=== PATIENT | male | born 1955 | race Caucasian/White ===

== ENCOUNTER 2018-08-21 15:14 | Emergency (ER) | payer MEDICARE, MEDICAID | END 2018-08-21 17:43 | disposition left against medical advice (07) | LOC: ED 17:37 | DX: R68.89 Other general symptoms and signs (principal); Z53.21 Procedure and treatment not carried out due to patient leaving prior to being seen by health care provider ==

== ENCOUNTER 2020-02-15 14:42 | Emergency (ER) | payer MEDICARE, MEDICAID ==
--- NOTE | 2020-02-15 15:23 | NUR ---
CALLED, NO ANSWER, NIL
--- NOTE | 2020-02-15 15:40 | NUR ---
NO ANSWER, NIL.
--- NOTE | 2020-02-15 15:57 | NUR ---
NO ANSWER, NIL.
== END 2020-02-15 16:03 | disposition left against medical advice (07) ==
LOC: ED 15:52
DX: F10.129 Alcohol abuse with intoxication, unspecified (principal); Y90.9 Presence of alcohol in blood, level not specified; Z53.29 Procedure and treatment not carried out because of patient's decision for other reasons